=== PATIENT | male | born 1985 | race Caucasian/White ===

== ENCOUNTER 2019-11-04 20:27 | Emergency (ER) | payer MEDICAID ==
[~2019-11-04] VITALS: Ht 185.4 cm; Wt 81.6 kg
[2019-11-04] MEDS ORDERED: KETOROLAC TROMETHAMINE 30 MG INJ IM ONE (21:15)
[2019-11-04] MEDS ORDERED: KETOROLAC TROMETHAMINE 30 MG INJ ONE (21:16)
[2019-11-04 21:23] VITALS: BP 122/79
--- NOTE | 2019-11-04 21:23 | NUR ---
Patient discharged to home in stable conditon. Written and verbal after care instructions given. Patient verbalizes understanding of instructions.
== END 2019-11-04 21:24 | disposition home or self-care (01) ==
LOC: ER 20:27
DX: K04.7 Periapical abscess without sinus (principal); Z88.0 Allergy status to penicillin
CPT/HCPCS: 96372; 99283; J1885; A4663

== ENCOUNTER 2021-02-05 21:11 | Emergency (ER) | payer MEDICAID ==
[~2021-02-05] VITALS: Ht 185.4 cm; Wt 81.6 kg
--- NOTE | 2021-02-05 21:40 | NUR ---
pipe testing technician in room to draw blood from patient.
[2021-02-05 21:57] LABS: BASOPHILS # (AUTO) 0.1 K/uL (0.0-8.0); BASOPHILS % (AUTO) 0.8 % (0.0-2.0); EOSINOPHILS # (AUTO) 0.7 K/uL (0.0-0.7); EOSINOPHILS % (AUTO) 5.5 % (0.0-7.0); HEMATOCRIT 46.9 % (36.7-47.1); HEMOGLOBIN 15.6 g/dL (12.5-16.3); LYMPHOCYTES # (AUTO) 3.2 K/uL (20.0-40.0); LYMPHOCYTES % (AUTO) 23.7 % (20.5-51.5); MEAN CORPUSCULAR HEMOGLOBIN 29.6 uug (23.8-33.4); MEAN CORPUSCULAR HGB CONC 33 g/dL (32.5-36.3); MONOCYTES % (AUTO) 7.4 % (0.0-11.0); NEUTROPHILS # (AUTO) 8.5 K/uL (1.8-8.9); NEUTROPHILS % (AUTO) 62.6 % (38.5-71.5); PLATELET COUNT (AUTO) 267 K/uL (152-348); RED BLOOD CELL COUNT(AUTO) 5.27 MIL/uL (4.06-5.63); WHITE BLOOD COUNT (AUTO) 13.5 K/uL (3.6-10.2)
--- NOTE | 2021-02-05 22:14 | NUR ---
Patient is resting on bed, no acute distress is noted.
[2021-02-05 22:40] VITALS: BP 123/77
--- NOTE | 2021-02-05 22:40 | NUR ---
Patient discharged to home in stable condition. Written and verbal after care instructions given. Patient verbalizes understanding of instructions. Stressed follow up or return to ER for worsening s/s. Patient ambulates with steady gait, V/S stable, received copies for CT/Labs/told to check back for hepatitis C results since it is a send-out, left with all belongings.
== END 2021-02-05 22:40 | disposition home or self-care (01) ==
LOC: ER 21:13
DX: R51.9 Headache, unspecified (principal); R63.4 Abnormal weight loss; R52 Pain, unspecified
CPT/HCPCS: 36415; 70450; 84443; 85025; 86803; 87806; A4663

== ENCOUNTER 2021-05-04 19:14 | Emergency (ER) | payer MEDICAID ==
[~2021-05-04] VITALS: Ht 188 cm; Wt 72.6 kg
[2021-05-04 20:42] LABS: HEMATOCRIT 47.4 % (36.7-47.1); MEAN CORPUSCULAR HEMOGLOBIN 30.6 uug (23.8-33.4); MEAN CORPUSCULAR VOLUME 88.4 fL (73.0-96.2); PLATELET COUNT (AUTO) 252 K/uL (152-348)
[2021-05-04 20:51] LABS: POTASSIUM 3.9 mmol/L (3.5-5.1)
[2021-05-04 20:57] LABS: BILIRUBIN,DIRECT 0.1 mg/dL (0.0-0.2); BILIRUBIN,TOTAL 0.3 mg/dL (0.2-1.0); MAGNESIUM 2.1 mg/dL (1.8-2.4); TOTAL PROTEIN, SERUM 7.6 g/dL (6.4-8.2)
[2021-05-04] MEDS ORDERED: CHLO25CA22 PO (21:10)
[2021-05-04] MEDS ORDERED: MAGN400C PO (21:10)
--- NOTE | 2021-05-04 21:50 | NUR ---
Patient discharged to home in stable condition. Written and verbal after care instructions given. Patient verbalizes understanding of instructions. Stressed follow up or return to ER for worsening s/s.
[2021-05-04 23:45] VITALS: BP 145/82
== END 2021-05-04 21:50 | disposition home or self-care (01) ==
LOC: ER 19:16
DX: R53.1 Weakness (principal); R63.4 Abnormal weight loss; Z20.822 Contact with and (suspected) exposure to COVID-19; Z86.39 Personal history of other endocrine, nutritional and metabolic disease; Z72.52 High risk homosexual behavior
CPT/HCPCS: 71046; 82175; 83735; 84100; 85025; 85730; 86592; 86803; 87806; A4663

== ENCOUNTER 2021-09-07 16:37 | Emergency (ER) | payer MEDICAID ==
[~2021-09-07 16:37] MED LIST: ONDA4TAB5 PO
--- NOTE | 2021-09-07 17:44 | NUR ---
PT WAS EVALUATED BY DR SUTTON IN WAITING ROOM . DR SUTTON D/C'd THE PT FROM WAITING ROOM. D/C INSTRUCTIONS GIVEN TO THE PT BY DR SUTTON.
== END 2021-09-07 17:45 | disposition home or self-care (01) ==
LOC: ER 16:39
DX: T59.91XA Toxic effect of unspecified gases, fumes and vapors, accidental (unintentional), initial encounter (principal); Y92.89 Other specified places as the place of occurrence of the external cause
CPT/HCPCS: A4663